=== PATIENT | male | born 1950 | race Caucasian/White ===

== ENCOUNTER 2023-09-04 12:18 | Outpatient (CLI) | payer MEDICARE, SELFPAY ==
--- NOTE | ~2023-09-04 | XR_ITS ---
EXAM: XR finger 3rd LT min 2V DATE: 09/04/2023 12:34 HISTORY: M79.645 - Pain in left finger(s) . COMPARISON: None available. FINDINGS: Normal mineralization. No fracture or dislocation. No lytic or blastic lesion. Mild multif ocal joint space narrowing and osteophytosis. No erosion or periosteal change. Soft tissues within no rmal limits. 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 Reviewed, dictated and finalized at location K.
== END 2023-09-04 12:19 ==
PROVIDERS: Visit Provider Family Medicine
DX: M19.042 Primary osteoarthritis, left hand (principal)
CPT/HCPCS: 73140

== ENCOUNTER 2024-08-14 09:39 | Outpatient (CLI) | payer MEDICARE, SELFPAY ==
--- NOTE | ~2024-08-14 | XR_ITS ---
XR hip RT min 2V 08/14/2024 10:00 Indication: Right hip pain Procedure: 2 views right hip Comparison: No prior studies for comparison. Findings: Moderate osteoarthritis of the right hip. No fracture, subluxation or dislocation. No signi ficant soft tissue abnormality. No foreign bodies. Impression: 1: Moderate osteoarthritis of the right hip. Reviewed, dictated and finalized at location A. Impression: 1: Moderate osteoarthritis of the right hip.
--- NOTE | ~2024-08-14 | XR_ITS ---
XR lumbar spine min 4V 08/14/2024 10:00 Indication: Back pain Procedure: 5 views lumbar spine Comparison: No prior studies for comparison. Findings: There is mild chronic wedge compression deformity of T12. There is disc narrowing at all renetta mbar levels. There is multilevel facet hypertrophy at L3-4 through L5-S1. No evidence for spondylolis thesis. No acute fracture is identified. Sacral foramen are symmetric. There is a sclerotic lesion in the left ilium, most likely benign bone island in the absence of known malignancy. There is bilatera l osteoarthritis of the hips. Impression: 1: Severe lumbar spondylosis. Reviewed, dictated and finalized at location A. Impression: 1: Severe lumbar spondylosis.
== END 2024-08-14 09:40 | disposition home or self-care (01) ==
PROVIDERS: PCP Family Medicine; Visit Provider Family Medicine
DX: M47.896 Other spondylosis, lumbar region (principal); M16.11 Unilateral primary osteoarthritis, right hip
CPT/HCPCS: 72110; 73502

== ENCOUNTER 2024-11-09 13:49 | Outpatient (CLI) | payer MEDICARE, SELFPAY ==
--- NOTE | 2024-11-09 14:47 | ECG_ITS ---
Test Date: 2024-11-09 15:04:58 Measurements Intervals [place] Rate: 52 P: 76 NJ: 85 QRS: 3 QRSD: 102 T: 29 QT: 449 QTc: 420 Interpretive Statements SINUS BRADYCARDIA WITH SHORT [place] INTERVAL BASELINE ARTIFACT- I, II, AVR BORDERLINE ECG No previous ECG available for comparison Electronically Signed On 11-09-2024 15:23:14 CDT by Storm Turner D.O.
[2024-11-09 15:14] LABS: Basophils Percent Auto 0.4 % (0.2-1.2); Eosinophils Absolute Auto 0.1 K/mm3 (0-0.3); Eosinophils Percent Auto 1.5 % (0-4.4); Hemoglobin 15.2 g/dL (14.0-18.0); Immature Granulocyte Absolute 0.01 K/mm3 (0.00-0.031); Immature Granulocyte Percent A 0.2 % (0-0.5); Lymphocytes Absolute Auto 1.26 K/mm3 (0.9-3.2); Mean Corpuscular HGB Conc 35.3 g/dl (32-36); Mean Corpuscular Hemoglobin 32.8 pg (26-34); Mean Corpuscular Volume 92.7 fl (80-100); Mean Platelet Volume 9.4 fl (7.4-10.4); Monocytes Absolute Auto 0.4 K/mm3 (0.1-0.6); Monocytes Percent Auto 7.8 % (2.6-8.5); Neutrophils Absolute Auto 3.7 K/mm3 (1.3-6.7); Neutrophils Percent Auto 67.1 % (45.5-73.1); Platelet Count Result 216 k/mm3 (150-375); Red Blood Count 4.64 M/mm3 (4.6-6.20); Red Cell Distribution Width 12.2 % (11.5-14.5); White Blood Count 5.5 K/mm3 (4.5-10.0)
[2024-11-09 15:24] LABS: Albumin Level 4.4 g/dL (3.5-5.1); Anion Gap 9 mmol/L (4-12); Blood Urea Nitrogen 12 mg/dL (9-20); Calcium 9.2 mg/dL (8.4-10.2); Carbon Dioxide 27 mmol/L (22-30); Chloride 104 mmol/L (98-107); Estimated Glomerular Filt Rate > 60; Glucose 92 mg/dL (65-110); Potassium 3.8 mmol/L (3.4-5.0); Sodium 140 mmol/L (137-145)
[2024-11-09 15:30] LABS: Urine Cotinine NEGATIVE
[2024-11-09 15:55] LABS: Hemoglobin A1C 5.2 % (<5.7)
== END 2024-11-09 13:50 | disposition home or self-care (01) ==
LOC: ANHSURGERY 13:53
PROVIDERS: PCP Family Medicine; Visit Provider Orthopaedic Surgery
DX: Z01.818 Encounter for other preprocedural examination (principal); M16.11 Unilateral primary osteoarthritis, right hip; R94.31 Abnormal electrocardiogram [ECG] [EKG]
CPT/HCPCS: 80048; 80307; 82040; 83036; 85025; 87081; 87181; 93005

== ENCOUNTER 2024-12-01 00:51 | Day surgery (SDC) | payer MEDICARE, SELFPAY ==
[2024-11-09 14:06] VITALS: BP 134/65; PULSE 56; RESP 16; TEMP 36.7; O2SAT 99; BMI 35.8
--- NOTE | 2024-11-09 14:23 | PC.NURSE ---
Report to the Outpatient Waiting Room, entrance under the green pavilion located off [facility], at time ___6:00AM____ on date ___12/01/24____. Planned Procedure Time: ___7:30AM .? Time changes happen often and if your time is changed the preop area will call you the afternoon before. - You and your visitor will be asked to self-screen and do not enter if you have any COVID symptoms. Please call surgeon if you need to reschedule. - A mask is optional within the hospital at this time. Patients may have clear liquids (water, carbonated beverages, clear teas, apple juice) until 3 hours prior to surgery (4:30AM) with a maximum of 20 ounces. - No food from midnight until time of surgery and no smoking, or chewing tobacco (or any form of nicotine). No chewing gum, candy or mints. Take only the following medications with a SIP of water on the morning of surgery: NONE DO NOT STOP ANY OF YOUR OTHER PRESCRIPTION MEDICATIONS PRIOR TO SURGERY EXCEPT THE FOLLOWING Medications to discontinue per physician ____HOLD ANACIN (ALL NSAIDS) AND VITAMINS/SUPPLEMENTS 7 DAYS PRE-OP PER DR MICHAELS. Date to take last dose 11/23/24 Please no make-up, nail portuguese, hairspray, perfume, deodorant, or body powder the day of surgery.? No jewelry (including any body piercings) or valuables the day of surgery, leave them at home.? Please take a shower or bath the night before, or the morning of, surgery with an antibacterial soap.? Wear comfortable, loose fitting clothing.? - Jewelry must be removed prior to entering the operating room.? Rings and piercings that are not removed may be cut off. - The hospital will not accept responsibility for valuables.? - Please leave all valuables, including medications, at home the day of surgery. If you are going home after surgery, a licensed superintendent drivers must drive you home.? - NO public transportation without another adult if you receive anesthesia. - We recommend that an adult stay with you for 24 hours following discharge. - We also recommend that you do not drive, make important decision, drink alcoholic beverages, or take any drugs that were not prescribed by your health care provider for at least 24 hours after your discharge time. Follow any additional instructions given to you from your surgeon. Telephone instructions given to ____PATIENT & WIFE and asked if any additional questions and then verbalized understanding. Patient advised to call surgeon office or pre surgery nurse liaison [phone] if any additional questions.
--- NOTE | 2024-11-30 12:46 | P.HP_ITS ---
H&P: HPI History of Present Illness Date/Time: 11/30/24 12:46 Chief Complaint: Right hip DJD Narrative: 74-year-old male who presents today for a right anterior total hip arthroplasty. Patient has been having progressively worsening symptoms in pain in his right hip over the course of the last 2-3 years. At this point he is getting symptoms on a daily basis. The arthritis in the hip is limiting his activities daily. He is very active individual but the pain he is experiencing from the arthritic hip is starting to limit those activities. Patient has moderately severe type 2 osteoarthritis in the right hip. This point he feels he would rather proceed with total hip arthroplasty rather than continue nonsurgical treatment. Review of Systems Review of Systems: All systems reviewed & are unremarkable except as noted in HPI and below PMFSH Past Medical History Medical History (Updated 09/25/24 @ 07:37 by Yvette Machado CMA) Essential (primary) hypertension Surgical History Surgical History (Updated 09/25/24 @ 07:37 by Yvette Machado CMA) History of trigger finger History of carpal tunnel surgery bilateral Social History Social History Smoking status: Never smoker Alcohol intake: current Drinks per week: 5 Substance use: never Substance use type: does not use Do You Feel Safe in your Home?: Yes Lack of Transportation: No Lack of Food: Never True Current Housing: I Have Housing Concerned About Future Housing: No Difficulty Paying Gas/Electric Bills: No Difficulty Paying for Meds: No Currently Unemployed: No Education: Bachelor's Degree Difficulty w/ Childcare or Family Care: No Living arrangements: with family Additional living arrangements comments: Occupation/Education: retired Gender identity (if verbalized by the patient): Male Sexual Orientation (if Verbalized by the Patient): Straight or Heterosexual Spiritual care concerns: No Meds Home Medications and Allergies Home Medications ?Medication ?Instructions ?Recorded ?Confirmed ?Type losartan 50 mg tablet 50 mg PO DAILY #90 tabs 08/12/24 11/09/24 Rx magnesium 250 mg tablet 250 mg PO DAILY 09/25/24 11/09/24 History aspirin-caffeine 400 mg-32 mg 2 tablet PO Q6H PRN headache 11/09/24 11/09/24 History tablet (Anacin) mupirocin 2 % topical ointment 1 applic topical BID #15 grams 11/12/24 Rx Allergies Allergy/AdvReac Type Severity Reaction Status Date / Time ibuprofen AdvReac HYPERACTIVI Verified 11/09/24 14:01 TY Exam Narrative: 74-year-old male alert. He is 5 ft 7 an d 230 lb BMI is 35.2. Skin around the hip and groin crease are normal. His right hip flexes to 120 causing him lateral hip pain internal rotation 10? causes mild lateral hip pain external rotation 25 which causes moderate lateral hip and anterior thigh pain. Stinchfield maneuver causes lateral hip pain. He has normal abduction strength in the lateral position. No tenderness over the greater trochanter. 2+ tono salis pedis and posterior tibial artery pulse palpable. Normal sensation both lower extremities. No edema in either lower extremity. Resp: Auscultation: clear to auscultation bilaterally Cardio: Rate: regular rate Rhythm: regular rhythm Assessment and Plan Assessment and plan (1) Primary osteoarthritis of right hip: Code(s): M16.11 - Unilateral primary osteoarthritis, right hip Status: Acute Assessment and Plan: 74-year-old male who has moderately severe type 2 osteoarthritis right hip with significant symptoms on a daily basis. Again at this point patient feels he would rather proceed with total hip arthroplasty rather than continue nonsurgical treatment. Surgical procedure as well as the risks and complications were discussed in detail and all questions were answered and we will proceed. Patient will see his primary care doctor for pre-surgical clearance. He will avoid any anti-inflammatories or aspirin products 1 week prior to surgery. Hemoglobin is 15.2 platelets are 216. Chem panel is within normal limits creatinine 0.84. His nasal swab did grow oxacillin sensitive Staph aureus and he has been Decolonizing.
[2024-12-01] VITALS (16 sets, daily range): BP systolic 115–145; BP diastolic 62–88; PULSE 51–70; RESP 10–18; TEMP 35.7–36.8; O2SAT 89–100
--- NOTE | ~2024-12-01 | XR_ITS ---
XR surgery orthopedic Ordering provider: Pelon Castillo MD History: . RIGHT OPAL ANTERIOR APPROACH . Comparison: None. FINDINGS/impression: Fluoroscopy time is 44.3 seconds. Cumulative dose is 19.55,mGy. Right hip arthroplasty intraoperative image. Reviewed, dictated and finalized at location A.
--- NOTE | ~2024-12-01 | XR_ITS ---
XR hip RT 1V w AP pelvis Ordering provider: Pelon Castillo MD History: . RIGHT OPAL ANTERIOR APPROACH, POST-OP . Comparison: September 25, 2024 FINDINGS: BONES: No acute fracture or dislocation. HIP JOINT SPACES: Right hip arthroplasty. Mild to moderate left hip osteoarthritic changes. SACROILIAC JOINT SPACES/LUMBAR SPINE: The sacroiliac joint spaces are normal. Mild degenerative banks es of the visualized lower lumbar spine. PUBIC SYMPHYSIS: Normal. SOFT TISSUES: Postoperative changes in the soft tissues of the right hip. IMPRESSION: No acute osseous abnormality pelvis. The right hip arthroplasty. Reviewed, dictated and finalized at location A.
--- OUTSIDE RECORDS SUMMARY | 2024-12-01 00:54 | XMS_ITS | Clinical Summary ---
Author Organization [facility] Address [address] [place] [address] Care Team Providers Care Card Checker Name Role Phone Unavailable Primary Care Provider Unavailabl e Social History Tobacco Use Types Packs/Day Years Used Date Smoking Tobacco: Never Assessed Sex and Gender Information Value Date Recorded Sex Assigned at Not on file Legal Sex Male 7:26 PM CDT Gender Identity Not on file Sexual Orientation Not on file Plan of Treatment Health Maintenance Due Date Last Done Comments Colorectal Cancer Screening Colonoscopy (10 Years) 1952 Hepatitis C 1970 DTaP, Tdap and Td Vaccines ( 1 - Tdap) 1971 Pneumococcal Vaccine: 50+ Ye ars (1 of 1 - PCV) 2002 Zoster Vaccines (1 of 2) 2002 COVID-19 Vaccine ( - 2023-2 5 season) 2024 RSV Immunization or 60+ Years (1 - 1-dose 75+ series) 2027 Meningococcal B Vaccine Aged Out No l onger eligible based on patient's age to complete this topic Meningococcal Vaccine Aged Out No rishabh sergio eligible based on patient's age to complete this topic RSV Immunizations Under 20 Months Aged Out No longer eligible based on patient's age to complete this topic
--- OUTSIDE RECORDS SUMMARY | 2024-12-01 00:54 | XMS_ITS | Clinical Summary ---
Author Organization [facility] Address [address] [place] [address] Care Team Providers Care Senior Architect Name Role Phone Alexis Pereira MD Primary Care Provider [phone] Allergies No known active allergies Medications losartan (COZAAR) 50 mg tabletIndicatio ns:hypertension Take 1 tablet (50 mg total) by mouth every morning 09/06/2023 Active magnesium gluconate (MAGONATE) 500 mg (27 mg elemental) tabletIndicatio ns:hypomagnesem ia Take 1 tablet (500 mg total) by mouth every morning Active glucosamine-cho nd-msm-vit C-Mn 500-400-166.6 mg tabletIndicatio ns:supplement Take 1 tablet by mouth every morning Active garlic 400 mg tablet Take 400 mg by mouth daily Active Active Problems Problem Noted Date Diagnosed Date Trigger middle finger of left hand 10/03/2023 Surgical History Surgery Date Site/Laterality Comments CARPAL TUNNEL RELEASE 05/20/2015 - 05/19/2016 Bilateral TRIGGER FINGER RELEASE 05/20/2015 - 05/19/2016 Right TONSILLECTOMY 05/20/1956 - 05/19/1957 Medical History Medical History Date Comments GERD (gastroesophageal reflux disease) Social History Tobacco Use Types Packs/Day Years Used Date Smoking Tobacco: Never Smokeless Tobacco: Never Tobacco Cessation:Counseling Given: Not Answered AUDIT-C Answer Date Recorded Q1: How often do you have a drink containing alc ohol? 2-4 times a month 11/12/2023 Q2: How many drinks containi ng alcohol do you have on a typical day when you are drinking? 1 or 2 11/12/2023 Q3: How often do you have si x or more drinks on one occasion? Less than monthly 11/12/2023 Personal Safety Answer Date Recorded Have you ever been in or are you currently in a harmful physical or emotional relationship or is someone making you feel afraid or unsafe? Denies 11/12/2023 Sex and Gender Information Value Date Recorded Sex Assigned at Not on file Legal Sex Male 2:23 PM CDT Gender Identity Not on file Sexual Orientation Not on file Obstetrics History Last Filed Vital Signs Vital Sign Reading Time Taken Comments Blood Pressure 135/78 11/12/2023 8:50 AM CDT Pulse 45 11/12/2023 8:50 AM CDT Temperature 36.2 C (97.2 F) 11/12/2023 5:47 AM CDT Respiratory Rate 12 11/12/2023 8:50 AM CDT Oxygen Saturation 99% 11/12/2023 8:50 AM CDT Inhaled Oxygen Concentration - - Weight 104.3 kg (230 lb) 11/12/2023 5:47 AM CDT Height 175.3 cm (5' 9) 11/12/2023 5:47 AM CDT Body Mass Index 33.97 11/12/2023 5:47 AM CDT Plan of Treatment Health Maintenance Due Date Last Done Comments Colon Cancer Screening-Colonoscopy 1950 Depression Screening 1950 Hepatitis C Screening 1950 Hepatitis B Screening 1970 Pneumococcal vaccine 65+ (1 of 1 - PCV) 2002 Zoster Vaccine (1 of 2) 2002 Well Visit 65+ 2017 DTaP/Tdap/Td Vaccine (2 - Td or Tdap) 12/03/2023 12/02/2013 Covid-19 Vaccine (5 - 2023-2 5 season) 2024 05/31/2022, 06/17/2021, 08/07/2020, Additional history exists Fall Risk Assessment 11/11/2024 11/12/2023 Influenza Vaccine (Season Ended) 2025 03/26/2023, 04/27/2022, 02/24/2016, Additional history exists Insurance [facility] MEDICARE [facility] AET[employer] MEDICARE GOLD Care Teams Senior Architect Relationship Specialty Start Date End Date Alexis Pereira MD [address] [place] [id number] PCP - General Family Medicine 09/16/23
--- OUTSIDE RECORDS SUMMARY | 2024-12-01 00:54 | XMS_ITS | Referral Summary ---
Author Organization [facility] Address [address] [place] [address] Care Team Providers Care Certified Coder Name Role Phone Alexis Pereira MD Primary Care Provider [phone] Allergies No known active allergies Medications losartan [...] Trigger middle finger of left hand 10/03/2023 Social History Tobacco Use Types Packs/Day Years [...] on file Sexual Orientation Not on file Last Filed Vital Signs Vital Sign Reading [...] 11/12/2023 5:47 AM CDT Plan of Treatment Not on file Insurance [facility] MEDICARE GOLD [facility] MEDICARE [facility] Care Teams Certified Coder Relationship Specialty Start Date End Date Alexis Pereira MD [address] [place] [id number] PCP - General Family Medicine 09/16/23
[2024-12-01] MEDS: LACTATED RINGERS 1,000 ML 30 ML IV CONT ×2 (06:30→12:06)
[2024-12-01] MEDS: VANCOMYCIN 1,500 MG/NS 500 ML 1,500 MG/500 ML BAG 250 MG IVPB (06:30)
[2024-12-01] MEDS: TRANEXAMIC ACID 1,000MG/ISO100 1,000 MG/100 ML BAG 200 MG IVPB (06:55)
[2024-12-01] MEDS: ACETAMINOPHEN 500 MG TABLET 1000 MG PO (06:55)
--- NOTE | 2024-12-01 07:09 | WPDHPUPDATE1 ---
History and Physical Update Update Date/Time: 12/01/24 07:09 History and Physical has been reviewed, including an updated exam of the patient. There are NO changes in the patient's condition. Risks, benefits, and alternatives have been discussed and questions answered. Patient agrees to proceed with procedure.
--- NOTE | 2024-12-01 07:29 | P.PNAN_ITS ---
Anes - Initial Pre Proc Eval Procedure: Operation Date: 12/01/24 07:30 Proposed Procedures p Right Total Hip Arthroplasty Anterior Approach - Pelon Castillo MD Date/Time: 12/01/24 07:29 Surgeon: Pelon Castillo MD Pre Op Diagnosis: oa right hip Patient Data Age: 74 Gender: M Height: 1.72 m Weight: 102.8 kg Last Vital Signs Temp 97.6 F 12/01/24 07:20 Pulse 51 L 12/01/24 07:20 Resp 16 12/01/24 07:20 BP 142/76 H 12/01/24 07:20 Pulse Ox 97 12/01/24 07:20 O2 Del Method Room Air 12/01/24 07:20 Allergies Allergy/AdvReac Type Severity Reaction Status Date / Time ibuprofen AdvReac HYPERACTIVI Verified 11/09/24 14:01 TY Home Medications ?Medication ?Instructions ?Recorded ?Confirmed ?Type losartan 50 mg tablet 50 mg PO DAILY #90 tabs 08/12/24 11/09/24 Rx magnesium 250 mg tablet 250 mg PO DAILY 09/25/24 11/09/24 History aspirin-caffeine 400 mg-32 mg 2 tablet PO Q6H PRN headache 11/09/24 11/09/24 History tablet (Anacin) mupirocin 2 % topical ointment 1 applic topical BID #15 grams 11/12/24 Rx Laboratory Tests 12/01/24 06:49 Blood Type Pending Antibody Screen Pending Patient hx anesthesia problems: none Family hx anesthesia problems: none Results Review: All pre-operative results and documents have been reviewed as part of the pre- operative evaluation. [facility] Past Medical History Medical History (Updated 09/25/24 @ 07:37 by Yvette Machado CMA) Essential (primary) hypertension Surgical History Surgical History (Updated 09/25/24 @ 07:37 by Yvette Machado CMA) History of trigger finger History of carpal tunnel surgery bilateral Social History Social History Smoking status: Never smoker Alcohol intake: current Drinks per week: 5 Substance use: never Substance use type: does not use Do You Feel Safe in your Home?: Yes Lack of Transportation: No Lack of Food: Never True Current Housing: I Have Housing Concerned About Future Housing: No Difficulty Paying Gas/Electric Bills: No Difficulty Paying for Meds: No Currently Unemployed: No Education: Bachelor's Degree Difficulty w/ Childcare or Family Care: No Living arrangements: with family Additional living arrangements comments: Occupation/Education: retired Gender identity (if verbalized by the patient): Male Sexual Orientation (if Verbalized by the Patient): Straight or Heterosexual Spiritual care concerns: No Anes - Eval Final PreProcedure Day of Procedure 12/01/24 07:29 Patient weight: obese Heart: regular rate and rhythm Lungs: clear to auscultation Airway: Mallampati scale class II Neurological: alert and oriented Last oral intake: >/= 8 hours ASA classification: III Emergent: no Anesthetic plan: proceed Anesthesia type and monitoring: general ETT and standard monitoring Results Review: All pre-operative results and documents have been reviewed as part of the pre- operative evaluation. Informed Consent: The patient's anesthetic plan and its attendant risks and benefits were discussed with the patient/family/POA. Questions were solicited and answers provided to the satisfaction of the patient/family/POA.
[2024-12-01] MEDS: ceFAZolin 2 GM in SODIUM CHLORIDE 0.9% IV 50 ML 100 ML IVPB (07:39)
[2024-12-01] MEDS: TRANEXAMIC ACID 1,000 MG/10 ML AMPUL 1000 MG IV PUSH (11:30)
[2024-12-01] MEDS: KETOROLAC 30 MG/ML VIAL (*BKC) IV PUSH (11:33)
[2024-12-01] MEDS: SODIUM CHLORIDE 0.9% IV 37.7 ML, MORPHINE SULFATE INJ (*CRX) 2 MG, ROPivacaine HCL 1% 2... INFILTRATE (11:48)
--- NOTE | 2024-12-01 11:55 | W.PM.PROC2 ---
Procedure Note - Detailed Date of Procedure 12/01/24 Pre-op Diagnosis oa right hip Post-op Diagnosis Same Procedure Performed Right total hip arthroplasty, direct anterior approach Surgeon Pelon Castillo MD Scrubber System Attendant Shukri Anesthesia General Description of Procedure Patient was brought to the operating room and general anesthesia was administered. He received 2 g of Ancef weight based vancomycin 1 g of TXA preoperatively. Boots were applied the feet after application of padding SCDs were applied to the legs and running during the procedure. The patient was transferred to the [facility] table and the right hip prepped draped usual fashion. A 10 cm longitudinal incision was made starting 3 cm lateral to the ASIS. Dissection was carried down to the fascia over the tensor fascia doris which was longitudinally incised over its midportion elevated off the anterior 50% of the TFL muscle. Interval between TFL and rectus femoris developed. Crossing branches of ascending lateral femoral circumflex vessels were ligated with suture divided. Retractor was placed anteromedial to the hip capsule the hip abducted internally rotated and the gluteus minimus elevated off the lateral capsule. Inverted T capsulotomy was performed and a femoral neck osteotomy made according to preoperative templating. Femoral head measured 53 mm in diameter due to peripheral osteophytes. Acetabulum was exposed labrum excised. Small fractured fragments of posterolateral osteophyte were noted and removed. The femur was externally rotated and extended and the interval between conjoined tendon and piriformis incised allowing the conjoined tendon to recess and the piriformis to flip posteriorly. With the leg back in the horizontal position acetabulum was exposed and prepared medialized with the 46 Reamer and reaming up to a 50 3 which reached the periphery. A light reaming with the 54 Reamer was performed. We could not seat the 54 trial. A precise reaming with the 54 to the floor the acetabulum was performed. And the 54 trial fit very snugly. The 54 shell was impacted and seated fully at 40? of abduction and appropriate anteversion matching his anatomy the anterior rim of the shell 2 mm on the anterior acetabular rim. Excellent Press-Fit was achieved. Single screw was placed in the ilium and the 36 inner diameter polyethylene liner fully seated without difficulty. The hip was externally rotated and extended with the table hook in place exposing the proximal femur. Exposure was a little bit more difficult because of his muscular stocky build and obesity. Once appropriate access the proximal femur was achieved through positioning, the femur was broached up to a size 9 Actis broach which had complete torsional stability. We trialed and with a 1.5 was too tight. The -2 could be reduced. Fluoroscopic x-rays showed that we had restored the preop leg length with the standard neck and -2 head. Offset seemed a little bit diminished and our neck cut was 2.5 mm higher than our preoperative templating. Therefore the 9 was countersunk 2.5 mm and trialing with the 1.5 gave appropriate soft tissue tension and excellent stability. The +5 could not be reduced. Calcar planing was completed and the size 9 standard offset Actis stem fully seated with the collar resting on the calcar no cracks. Trialing with the 1.5 proved that was the best size head and the ceramic 1.5 head was impacted on the clean and dried trunnion. Wound was again irrigated with Ancef solution and hip reduced stability and soft tissue tension reconfirmed. Superior limb the capsulotomy was closed with 2. Vicryl was. Local anesthetic cocktail was injected into the periarticular soft tissues. Fascia was closed with running 1. Vicryl drain deep in the subcu and the skin closed with 2-0 subcutaneous Vicryl and glue. Two additional g of Ancef own 1 g of TXA was given at time of wound closure. Estimated blood loss was 750 cc by Cell Saver and 250 cc returned as Cell Saver blood. Patient tolerated the procedure well was transferred to postop recovery room stable condition. Bone quality seemed excellent we will allow to be weight-bearing as tolerated postoperatively. [facility] Billing Surgery - Charge Forward: Surgery Billing (Right total hip replacement)
--- NOTE | 2024-12-01 12:14 | PM.OP ---
Procedure Note - Brief Procedure Note - Brief Date of procedure: 12/01/24 oa right hip Procedure performed: Right anterior total hip arthroplasty Surgeon: MARIELOS Moore Findings: 74-year-old male underwent right anterior total hip arthroplasty on 12/01. I was involved in the procedure including positioning patient on the OR table in 1st assisting through the time surgery. Total time spent was 4 hours
[2024-12-01] MEDS: ACETAMINOPHEN 325 MG TABLET 650 MG PO ×3 (14:28→21:46)
[2024-12-01] MEDS: oxyCODONE HCL (*CRX) 5 MG TAB IR PO (14:28)
--- NOTE | 2024-12-01 15:12 | PM.IMCN ---
Assessment and Plan Assessment and plan (1) Primary osteoarthritis of right hip: Code(s): M16.11 - Unilateral primary osteoarthritis, right hip Status: Acute Assessment and Plan: - ambulate with assistance and up to chair - use IS - neurovasc checks - see order for intervals - SCDs and Eliquis - pain management and antiemetics p.r.n. - monitor labs in AM - CBC and BMP - bowel regimen: docusate/senna, polyethylene glycol - PT/OT evaluation/treatment (2) Essential (primary) hypertension: Code(s): I10 - Essential (primary) hypertension Status: Acute Assessment and Plan: - chronic, currently 130/69 - continue home medications: Losartan - monitor Plan Diet: Regular GI Prophylaxis: Famotidine p.o. DVT Prophylaxis: SCDs, Eliquis IV fluids: NS 125 mL/hour Lines/Tubes: Peripheral IV Code Status: Full code HPI Date of Consult Consult date: 12/01/24 Requesting Physician: Pelon Castillo MD Primary Care Provider: Alexis Pereira MD Consult Narrative Reason for consult: Medical Management Narrative: 74 y/o M with PMH of HTN presents here for a right total hip arthroplasty. The patient presents here on 12/01 for a right total hip arthroplasty. The patient reports he has had ongoing pain to his right hip for some years with progression in severity over the last 2-3 years. Significantly worse since May. Pain is now affecting him on a daily basis and limiting his daily activities. He has a history of moderately severe type to osteoarthritis of the right hip. He has been managing his pain via conservative measures, however due to the severity of the pain and progression of the pain he elected to move forward with surgical management. Postoperatively he is reporting no significant nausea, vomiting or pain. Preop VS: 98.1? F, HR 56, RR 16, 134/65, and 99% on RA. Preop workup: No leukocytosis, no anemia, no significant electrolyte derangements, renal function within normal limits, and A1c 5.2% Review of Systems Review of Systems: All systems reviewed & are unremarkable except as noted in HPI and below PMFSH Past Medical History Medical History (Updated 12/01/24 @ 15:15 by Raissa Qiu APRN) GERD (gastroesophageal reflux disease) Essential (primary) hypertension Surgical History Surgical History (Updated 12/01/24 @ 15:15 by Raissa Qiu APRN) History of tonsillectomy History of trigger finger History of carpal tunnel surgery bilateral Social History Social History Smoking status: Never smoker Alcohol intake: never Drinks per week: 5 Substance use: never Substance use type: does not use Do You Feel Safe in your Home?: Yes Lack of Transportation: No Lack of Food: Never True Current Housing: I Have Housing Concerned About Future Housing: No Difficulty Paying Gas/Electric Bills: No Difficulty Paying for Meds: No Currently Unemployed: No Education: Decline to Answer Difficulty w/ Childcare or Family Care: No Living arrangements: with family Additional living arrangements comments: Occupation/Education: retired Gender identity (if verbalized by the patient): Male Sexual Orientation (if Verbalized by the Patient): Straight or Heterosexual Spiritual care concerns: No Meds Home Medications and Allergies Home Medications ?Medication ?Instructions ?Recorded ?Confirmed ?Type losartan 50 mg tablet 50 mg PO DAILY #90 tabs 08/12/24 11/09/24 Rx magnesium 250 mg tablet 250 mg PO DAILY 09/25/24 11/09/24 History aspirin-caffeine 400 mg-32 mg 2 tablet PO Q6H PRN headache 11/09/24 11/09/24 History tablet (Anacin) Allergies Allergy/AdvReac Type Severity Reaction Status Date / Time ibuprofen AdvReac HYPERACTIVI Verified 11/09/24 14:01 TY Vital Signs Vital Signs - 24 hr 12/01/24 07:20 12/01/24 12:06 12/01/24 12:15 Temperature 97.6 F 98.2 F Pulse Rate 51 L 54 L 60 Respiratory Rate 16 12 10 L Blood Pressure 142/76 H 122/69 132/82 Pulse Oximetry 97 98 100 Oxygen Delivery Room Air Simple Face Mask Simple Face Mask Oxygen Flow Rate 8 8 12/01/24 12:30 12/01/24 12:35 12/01/24 12:45 Temperature Pulse Rate 63 64 Respiratory Rate 15 14 Blood Pressure 145/82 H 142/82 H Pulse Oximetry 100 100 Oxygen Delivery Simple Face Mask Simple Face Mask Room Air Oxygen Flow Rate 8 8 12/01/24 12:50 12/01/24 13:05 12/01/24 13:09 Temperature 97.1 F L Pulse Rate 61 65 62 Respiratory Rate 12 12 17 Blood Pressure 142/81 H 142/84 H 138/88 Pulse Oximetry 99 100 99 Oxygen Delivery Room Air Room Air Room Air Oxygen Flow Rate 12/01/24 13:11 12/01/24 13:26 12/01/24 14:11 Temperature 96.6 F L 96.3 F L Pulse Rate 60 64 Respiratory Rate 18 18 Blood Pressure 135/64 130/69 Pulse Oximetry 99 97 Oxygen Delivery Room Air Oxygen Flow Rate Exam Const: General: comfortable and no acute distress Other: , male, nontoxic appearance HENMT: Face/Nose/Sinus: Normal nares present Mouth: Yes moist mucous membranes Eyes: General: appearance normal, both eyes and all related structures Sclera: sclerae normal Pupils: Equal, round and reactive pupils present EOM: EOMs intact bilaterally Resp: Effort & Inspection: normal respiratory effort Auscultation: clear to auscultation bilaterally Cardio: Rate: regular rate Rhythm: regular rhythm Other: S1-S2 present without murmur, rub, ectopy GI: Other: Abdomen soft, nondistended, nontender. Normoactive bowel sounds in all quadrants. Skin: General skin exam: normal color and no rashes or lesions noted Other: Postoperative incision to right hip, drain in place with serosanguineous output. Neuro: Speech: normal speech Motor exam (neuro): 5/5 motor strength present throughout Sensory Exam: normal sensation Other: A&O x4 Extrem: General: normal to inspection Psych: Mental Status: mental status grossly normal Affect: normal affect Other: Good insight and judgment, pleasant Quality VTE Prophylaxis VTE prophylaxis: mechanical ordered and pharmacologic ordered Hospitalist [facility] Advance Care Plan I have confirmed that the patient's Advanced Care Plan is present, code status is documented, or surrogate decision maker is listed in patient medical record.: Yes Medication Reconciliation I have utilized all available resources to obtain, update and review the patients current medications (includes all prescriptions, OTC, herbals, cannabis, and nutritional supplements).: Yes
--- NOTE | 2024-12-01 15:20 | PC.NURSE ---
This patient, Tong Reynaga, was received from PACU on 12/01/24 at . Patient/family oriented to unit policies and routines Admission Note: The patient,Tong Reynaga,74 y/o, was given written information regarding hospital policies, unit procedures and contact persons. Patient's smoking status: Never smoker. Al questions answered.
[2024-12-01] MEDS: KETOROLAC 15 MG/ML VIAL (*BKC) IV PUSH (17:31)
[2024-12-01] MEDS: SENNA/DOCUSATE SODIUM TABLET 2 TAB PO (17:33)
[2024-12-01] MEDS: ceFAZolin 2 GM/D5W 50 ML 2 GM/50 ML BAG IVPB (17:35)
[2024-12-01] MEDS: VANCOMYCIN HCL 1,000 MG in SODIUM CHLORIDE 0.9% IV 250 ML 250 MG IVPB (17:35)
[2024-12-01] MEDS: FAMOTIDINE 20 MG TABLET PO (21:45)
[2024-12-02] MEDS: ceFAZolin 2 GM/D5W 50 ML 2 GM/50 ML BAG IVPB ×2 (00:38→08:59)
[2024-12-02] MEDS: KETOROLAC 15 MG/ML VIAL (*BKC) IV PUSH (00:39)
[2024-12-02 02:56] VITALS: BP 102/52; PULSE 60; RESP 18; TEMP 36.3; O2SAT 97
[2024-12-02 06:02] LABS: Hematocrit 38.4 % (42.0-52.0); Hemoglobin 13.2 g/dL (14.0-18.0); Immature Granulocyte Percent A 0.4 % (0-0.5); Lymphocytes Absolute Auto 1.13 K/mm3 (0.9-3.2); Mean Corpuscular HGB Conc 34.4 g/dl (32-36); Mean Corpuscular Hemoglobin 32.8 pg (26-34); Mean Corpuscular Volume 95.3 fl (80-100); Nucleated Red Blood Cells Absolute Auto 0.000 K/mm3 (0.0-0.012); Nucleated Red Blood Cells Perc 0.0 % (0.0-0.2); Platelet Count Result 162 k/mm3 (150-375); Red Blood Count 4.03 M/mm3 (4.6-6.20); White Blood Count 10.5 K/mm3 (4.5-10.0)
[2024-12-02 06:16] LABS: Anion Gap 7 mmol/L (4-12); Blood Urea Nitrogen 15 mg/dL (9-20); Calcium 8.4 mg/dL (8.4-10.2); Carbon Dioxide 26 mmol/L (22-30); Chloride 103 mmol/L (98-107); Estimated CRCL calculation 68 ml/min; Estimated Glomerular Filt Rate > 60; Glucose 116 mg/dL (65-110); Potassium 3.9 mmol/L (3.4-5.0); Sodium 136 mmol/L (137-145)
[2024-12-02] MEDS: ACETAMINOPHEN 325 MG TABLET 650 MG PO ×2 (06:47→09:00)
[2024-12-02] MEDS: VANCOMYCIN HCL 1,000 MG in SODIUM CHLORIDE 0.9% IV 250 ML 250 MG IVPB (06:47)
[2024-12-02 07:31] VITALS: O2SAT 92
--- NOTE | 2024-12-02 08:29 | P.PNOP_ITS ---
Subjective Subjective Date/Time Seen: 12/02/24 08:29 Interval history: Postop day 1 patient is alert. He is afebrile vital signs are stable. Blood pressure is slightly low patient is asymptomatic. Morning labs are noted. Patient's dressing has been changed and his drain is out. He was up walking yesterday with therapy. He has been urinating well since surgery. Overall pain is well controlled. Patient is neurovascularly intact. His incision is dry and intact. Overall patient feels well. He has the typical soreness proximal thigh due to surgery but overall his symptoms are relatively mild. Patient will work with therapy this morning and if he continues to do well he be discharged home later this morning. Objective Data Vital Signs Vital Signs: Vital Signs - 24 hr 12/01/24 12:06 12/01/24 12:15 12/01/24 12:30 Temperature 98.2 F Pulse Rate 54 L 60 63 Respiratory Rate 12 10 L 15 Blood Pressure 122/69 132/82 145/82 H Pulse Oximetry 98 100 100 Oxygen Delivery Simple Face Mask Simple Face Mask Simple Face Mask Oxygen Flow Rate 8 8 8 12/01/24 12:35 12/01/24 12:45 12/01/24 12:50 Temperature Pulse Rate 64 61 Respiratory Rate 14 12 Blood Pressure 142/82 H 142/81 H Pulse Oximetry 100 99 Oxygen Delivery Simple Face Mask Room Air Room Air Oxygen Flow Rate 8 12/01/24 13:05 12/01/24 13:09 12/01/24 13:11 Temperature 97.1 F L 96.6 F L Pulse Rate 65 62 60 Respiratory Rate 12 17 18 Blood Pressure 142/84 H 138/88 135/64 Pulse Oximetry 100 99 99 Oxygen Delivery Room Air Room Air Oxygen Flow Rate 12/01/24 13:26 12/01/24 13:56 12/01/24 14:11 Temperature 96.3 F L 96.3 F L Pulse Rate 64 64 Respiratory Rate 18 18 Blood Pressure 130/69 130/69 Pulse Oximetry 97 97 Oxygen Delivery Room Air Oxygen Flow Rate 12/01/24 14:56 12/01/24 18:56 12/01/24 22:32 Temperature 96.3 F L 97.3 F L Pulse Rate 64 69 Respiratory Rate 18 18 Blood Pressure 130/69 115/64 Pulse Oximetry 97 97 89 L Oxygen Delivery Nasal Cannula Oxygen Flow Rate 1 12/01/24 22:56 12/01/24 22:59 12/02/24 02:56 Temperature 97.7 F 97.4 F L Pulse Rate 70 60 Respiratory Rate 18 16 18 Blood Pressure 117/62 102/52 L Pulse Oximetry 98 94 97 Oxygen Delivery Nasal Cannula Oxygen Flow Rate 1 12/02/24 07:31 Temperature Pulse Rate Respiratory Rate Blood Pressure Pulse Oximetry 92 Oxygen Delivery Room Air Oxygen Flow Rate Intake/Output Intake/Output: Intake & Output 11/29/24 11/30/24 12/01/24 12/02/24 23:59 23:59 23:59 23:59 Intake Total 700 Output Total 140 400 Balance 560 -400 Meds/Results Medications: Active Medications Generic Name Dose Route Start Last Admin Trade Name Freq PRN Reason Stop Dose Admin Acetaminophen 650 mg 12/01/24 14:00 12/02/24 06:47 Acetaminophen 325 Mg Tablet PO 650 mg Q4H MAVIS Administration Apixaban 2.5 mg 12/02/24 09:00 Apixaban 2.5 Mg Tablet PO Q12HR MAVIS Celecoxib 200 mg 12/02/24 09:00 Celecoxib 200 Mg Capsule PO DAILY MAVIS Cephalexin HCl 500 mg 12/02/24 14:00 Cephalexin 500 Mg Capsule PO Q6H MAVIS Famotidine 20 mg 12/01/24 21:00 12/01/24 21:45 Famotidine 20 Mg Tablet PO 20 mg Q12HR MAVIS Administration Sodium Chloride 1,000 mls @ 125 mls/hr 12/01/24 13:11 12/02/24 06:40 Normal Saline Iv IV CONT Not Given .Q8H MAVIS Losartan Potassium 50 mg 12/02/24 09:00 Losartan Potassium 50 Mg Tablet PO DAILY MAVIS Morphine Sulfate 2 mg 12/01/24 13:11 Morphine Sulfate (*Crx) 2 Mg/Ml Inj IV PUSH Q2H PRN Breakthrough Pain Rated 4-6 or NPO Naloxone HCl 0.1 mg 12/01/24 13:11 Naloxone Hcl 0.4 Mg/Ml Vial IV PUSH Q2M PRN Opiate Reversal Ondansetron HCl 4 mg 12/01/24 13:11 Ondansetron Inj 4 Mg/2 Ml Vial IV PUSH Q4H PRN Nausea And Vomiting Oxycodone HCl 5 mg 12/01/24 13:11 12/02/24 06:40 Oxycodone Hcl (*Crx) 5 Mg Tab Ir PO Not Given Q4H AMVIS Oxycodone HCl 5 mg 12/01/24 13:11 Oxycodone Hcl (*Crx) 5 Mg Tab Ir PO Q4H PRN Pain Rated 7-10 Polyethylene Glycol 17 gm 12/02/24 09:00 Polyethylene Glycol 3350 17 Gm Powd.Pack PO QAM MAVIS Senna/Docusate Sodium 2 tab 12/01/24 17:00 12/01/24 17:33 Senna/Docusate Sodium Tablet PO 2 tab BID MAVIS Administration Radiology Results: ITS Impressions Hip/Pelvis X-Ray 12/01/24 14:11 IMPRESSION: No acute osseous abnormality pelvis. The right hip arthroplasty. Labs Labs: Laboratory Results - last 24 hr 12/02/24 05:29 WBC 10.5 H RBC 4.03 L Hgb 13.2 L Hct 38.4 L MCV 95.3 MCH 32.8 MCHC 34.4 RDW 12.1 Plt Count 162 MPV 9.8 Immature Gran % (Auto) 0.4 Neut % (Auto) 79.3 H Lymph % (Auto) 10.8 L [place] % (Auto) 9.2 H Eos % (Auto) 0.2 Baso % (Auto) 0.1 L Lymph # (Auto) 1.13 [place] # (Auto) 1.0 H Eos # (Auto) 0.0 Baso # (Auto) 0.0 Abs Immat Gran (auto) 0.04 H Absolute Neuts (auto) 8.3 H Absolute Nucleated RBC 0.000 Nucleated RBC % 0.0 Sodium 136 L Potassium 3.9 Chloride 103 Carbon Dioxide 26 Anion Gap 7 BUN 15 Creatinine 1.01 Estim Creat Clear Calc 68 Estimated GFR > 60 Glucose 116 H Calcium 8.4
[2024-12-02 08:30] VITALS: BP 127/61; PULSE 57; RESP 16; TEMP 36.4; O2SAT 99
--- NOTE | 2024-12-02 08:33 | P.CONIM_ITS ---
Assessment and Plan Assessment and plan (1) Primary osteoarthritis of right hip: Code(s): M16.11 - Unilateral primary osteoarthritis, right hip Status: Acute Assessment and Plan: - ambulate with assistance and up to chair - use IS - neurovasc checks - see order for intervals - SCDs and Eliquis - pain management and antiemetics p.r.n. - monitor labs in AM - CBC and BMP - bowel regimen: docusate/senna, polyethylene glycol - PT/OT evaluation/treatment (2) Essential (primary) hypertension: Code(s): I10 - Essential (primary) hypertension Status: Acute Assessment and Plan: - chronic, currently 130/69 - continue home medications: Losartan - monitor Plan Diet: Regular GI Prophylaxis: Famotidine p.o. DVT Prophylaxis: SCDs, Eliquis IV fluids: NS 125 mL/hour Lines/Tubes: Peripheral IV Code Status: Full code HPI Date of Consult Consult date: 12/02/24 Requesting Physician: Pelon Castillo MD Primary Care Provider: Alexis Pereira MD Consult Narrative Narrative: Tong Reynaga is a 74 year old male with PMH of HTN presents here for a right total hip arthroplasty. The patient presents here on 12/01 for a right total hip arthroplasty. The patient reports he has had ongoing pain to his right hip for some years with progression in severity over the last 2-3 years. Significantly worse since May. Pain is now affecting him on a daily basis and limiting his daily activities. He has a history of moderately severe type to osteoarthritis of the right hip. He has been managing his pain via conservative measures, however due to the severity of the pain and progression of the pain he elected to move forward with surgical management. 12/02/2024 Continues to report no significant nausea, vomiting or pain. Cleared by Ortho for discharge today once pt has worked with PT/OT. Pt has no other complaints or concerns. Review of Systems 2 Review of Systems: All systems reviewed & are unremarkable except as noted in HPI and below PMFSH Past Medical History Medical History (Updated 12/01/24 @ 15:15 by Raissa Qiu APRN) GERD (gastroesophageal reflux disease) Essential (primary) hypertension Surgical History Surgical History (Updated 12/02/24 @ 08:32 by MARIELOS Moore) History of tonsillectomy History of trigger finger History of carpal tunnel surgery bilateral Social History Social History Smoking status: Never smoker Alcohol intake: never Drinks per week: 5 Substance use: never Substance use type: does not use Do You Feel Safe in your Home?: Yes Lack of Transportation: No Lack of Food: Never True Current Housing: I Have Housing Concerned About Future Housing: No Difficulty Paying Gas/Electric Bills: No Difficulty Paying for Meds: No Currently Unemployed: No Education: Decline to Answer Difficulty w/ Childcare or Family Care: No Living arrangements: with family Additional living arrangements comments: Occupation/Education: retired Gender identity (if verbalized by the patient): Male Sexual Orientation (if Verbalized by the Patient): Straight or Heterosexual Spiritual care concerns: No Meds Home Medications and Allergies Home Medications ?Medication ?Instructions ?Recorded ?Confirmed ?Type losartan 50 mg tablet 50 mg PO DAILY #90 tabs 08/12/24 11/09/24 Rx magnesium 250 mg tablet 250 mg PO DAILY 09/25/24 11/09/24 History acetaminophen 325 mg tablet 650 mg (2 x 325 mg) PO Q4H #90 tabs 12/02/24 Rx apixaban 2.5 mg tablet (Eliquis) 2.5 mg PO Q12HR #70 tabs 12/02/24 Rx celecoxib 200 mg capsule (Celebrex) 200 mg PO DAILY #10 caps 12/02/24 Rx cephalexin 500 mg capsule 500 mg PO Q6H #56 caps 12/02/24 Rx oxycodone 5 mg tablet 5 mg PO Q4H PRN Pain #30 tabs 12/02/24 Rx polyethylene glycol 3350 17 gram 17 g PO QAM #30 ea 12/02/24 Rx oral powder packet (Miralax) sennosides 8.6 mg-docusate sodium 2 tab PO BID #60 tabs 12/02/24 Rx 50 mg tablet (Senokot-S) Allergies Allergy/AdvReac Type Severity Reaction Status Date / Time ibuprofen AdvReac HYPERACTIVI Verified 11/09/24 14:01 TY Vital Signs Vital Signs - 24 hr 12/01/24 12:06 12/01/24 12:15 12/01/24 12:30 Temperature 98.2 F Pulse Rate 54 L 60 63 Respiratory Rate 12 10 L 15 Blood Pressure 122/69 132/82 145/82 H Pulse Oximetry 98 100 100 Oxygen Delivery Simple Face Mask Simple Face Mask Simple Face Mask Oxygen Flow Rate 8 8 8 12/01/24 12:35 12/01/24 12:45 12/01/24 12:50 Temperature Pulse Rate 64 61 Respiratory Rate 14 12 Blood Pressure 142/82 H 142/81 H Pulse Oximetry 100 99 Oxygen Delivery Simple Face Mask Room Air Room Air Oxygen Flow Rate 8 12/01/24 13:05 12/01/24 13:09 12/01/24 13:11 Temperature 97.1 F L 96.6 F L Pulse Rate 65 62 60 Respiratory Rate 12 17 18 Blood Pressure 142/84 H 138/88 135/64 Pulse Oximetry 100 99 99 Oxygen Delivery Room Air Room Air Oxygen Flow Rate 12/01/24 13:26 12/01/24 13:56 12/01/24 14:11 Temperature 96.3 F L 96.3 F L Pulse Rate 64 64 Respiratory Rate 18 18 Blood Pressure 130/69 130/69 Pulse Oximetry 97 97 Oxygen Delivery Room Air Oxygen Flow Rate 12/01/24 14:56 12/01/24 18:56 12/01/24 22:32 Temperature 96.3 F L 97.3 F L Pulse Rate 64 69 Respiratory Rate 18 18 Blood Pressure 130/69 115/64 Pulse Oximetry 97 97 89 L Oxygen Delivery Nasal Cannula Oxygen Flow Rate 1 12/01/24 22:56 12/01/24 22:59 12/02/24 02:56 Temperature 97.7 F 97.4 F L Pulse Rate 70 60 Respiratory Rate 18 16 18 Blood Pressure 117/62 102/52 L Pulse Oximetry 98 94 97 Oxygen Delivery Nasal Cannula Oxygen Flow Rate 1 12/02/24 07:31 Temperature Pulse Rate Respiratory Rate Blood Pressure Pulse Oximetry 92 Oxygen Delivery Room Air Oxygen Flow Rate Exam 2 Const: General: comfortable and no acute distress Other: , male, nontoxic appearance HENMT: Face/Nose/Sinus: Normal nares present Mouth: Yes moist mucous membranes Eyes: General: appearance normal, both eyes and all related structures S clera: sclerae normal Pupils: Equal, round and reactive pupils present E OM: EOMs intact bilaterally Resp: Effort & Inspection: normal respiratory effort Auscultation: clear to auscultation bilaterally Cardio: Rate: regular rate Rhythm: regular rhythm Other: S1-S2 present without murmur, rub, ectopy GI: Other: Abdomen soft, nondistended, nontender. Normoactive bowel sounds in all quadrants. Skin: General skin exam: normal color and no rashes or lesions noted Other: Postoperative incision to right hip, drain removed Neuro: Cranial nerves: Yes Equal, round and reactive pupils present Speech: normal speech Motor exam (neuro): 5/5 motor strength present throughout S ensory Exam: normal sensation Other: A&O x4 Extrem: General: normal to inspection Psych: Mental Status: mental status grossly normal Affect: normal affect Other: Good insight and judgment, pleasant Results Labs 12/02/24 05:29 12/02/24 05:29 Labs: Short CBC 12/02/24 Range/Units 05:29 WBC 10.5 H (4.5-10.0) K/mm3 Hgb 13.2 L (14.0-18.0) g/dL Hct 38.4 L (42.0-52.0) % Plt Count 162 (150-375) k/mm3 [facility] 12/02/24 05:29 Sodium 136 L Potassium 3.9 Chloride 103 Carbon Dioxide 26 BUN 15 Creatinine 1.01 Glucose 116 H Calcium 8.4 Quality VTE Prophylaxis VTE prophylaxis: mechanical ordered and pharmacologic ordered
[2024-12-02 08:58] VITALS: BP 126/75
[2024-12-02] MEDS: LOSARTAN POTASSIUM 50 MG TABLET PO (09:00)
[2024-12-02] MEDS: CELECOXIB 200 MG CAPSULE PO (09:00)
[2024-12-02] MEDS: SENNA/DOCUSATE SODIUM TABLET 2 TAB PO (09:00)
[2024-12-02] MEDS: FAMOTIDINE 20 MG TABLET PO (09:00)
[2024-12-02] MEDS: APIXABAN 2.5 MG TABLET PO (09:00)
== END 2024-12-02 11:16 | disposition home or self-care (01) ==
LOC: ANHSURGERY 06:02 → ANH3MEDSUR 13:19
PROVIDERS: Physician Assistant Surgical; PCP Family Medicine; Visit Provider Orthopaedic Surgery
PROC: (CPT 27130; principal; 2024-12-01 07:30)
DX: M16.11 Unilateral primary osteoarthritis, right hip (principal); I10 Essential (primary) hypertension; E66.9 Obesity, unspecified; Z68.34 Body mass index [BMI] 34.0-34.9, adult
CPT/HCPCS: 27130; 36415; 73501; 80048; 85025; 86850; 86900; 86901; 97110; 97116; 97161; 97165; 97535; 99199; J0690; A9270; C1713; C1776; J0166; J1100; J1171; J1596; J1885; J2003; J2270; J2405; J2704; J2795; J3010; J3373; J7040; J7050; J7120

== ENCOUNTER 2024-12-04 12:53 | Emergency (ER) | payer MEDICARE, SELFPAY ==
--- NOTE | ~2024-12-04 | CT_ITS ---
EXAMINATION: CTA brain carotid DATE: 12/04/2024 17:02 INDICATION: vision changes TECHNIQUE: Computed tomographic angiography (CTA) of the head was performed without and with 100 mL O mnipaque-350 intravenous contrast. CTA of the neck was performed with intravenous contrast. Automated exposure control and iterative reconstruction technique were employed. The dose-length product was 2 163.69 mGy-cm. Maximum intensity projection and volume rendered 3D-reconstructions were created by beth hernandez technologist on a separate workstation. COMPARISON: None. FINDINGS: CT BRAIN: No acute large vessel infarct, intracranial hemorrhage, mass, or hydrocephalus. Decreased pneumatizat ion of the left mastoid air cells. Left mastoid fluid. The remaining aerated spaces are clear. CTA HEAD: No large vessel occlusion, aneurysm, high flow vascular malformation, nidus or extravasation. CTA NECK: Aortic arch and proximal great vessels: Normal arch anatomy. Right common carotid, carotid bifurcation, and internal carotid artery: Mild calcified and noncalcifi ed atherosclerotic plaque at the carotid bifurcation.There is 0% stenosis of the proximal right inter nal carotid artery relative to normal distal artery lumen diameter (NASCET criteria). Left common carotid, carotid bifurcation, and internal carotid artery: Mild calcified and noncalcifie d atherosclerotic plaque at the carotid bifurcation.There is 0% stenosis of the proximal left interna l carotid artery relative to normal distal artery lumen diameter (NASCET criteria). Vertebral arteries: No significant plaque or stenosis. Left vertebral artery is dominant. Other findings: Degenerative changes in the cervical spine. IMPRESSION: No acute intracranial process. No large vessel intracranial occlusion, high-grade intracranial stenosis, or aneurysm. No carotid or vertebral artery occlusion, dissection, or significant stenosis. Reviewed, dictated and finalized at location K. IMPRESSION: No acute intracranial process. No large vessel intracranial occlusion, high-grade intracranial stenosis, or an eurysm. No carotid or vertebral artery occlusion, dissection, or significant stenosis.
[2024-12-04 12:56] VITALS: BP 110/93; PULSE 72; RESP 18; TEMP 36.4; O2SAT 99
--- OUTSIDE RECORDS SUMMARY | 2024-12-04 12:58 | XMS_ITS | Clinical Summary ---
Author Organization [facility] Address [address] [place] [address] Care Team Providers Care Electronic Gluing Machine Operator Name Role Phone Unavailable Primary Care Provider [...]
--- OUTSIDE RECORDS SUMMARY | 2024-12-04 12:58 | XMS_ITS | Clinical Summary ---
Author Organization [facility] Address [address] [place] [address] Care Team Providers Care Maintenance Service Supervisor Name Role Phone Alexis Pereira MD Primary Care Provider [phone] Allergies No known active allergies Medications losartan [...] 03/26/2023, 04/27/2022, 02/24/2016, Additional history exists Insurance [facility] MEDICARE [facility] [employer] MEDICARE GOLD Care Teams Maintenance Service Supervisor Relationship Specialty Start Date End Date Alexis Pereira MD [address] [place] [id number] PCP - General Family Medicine 09/16/23
--- OUTSIDE RECORDS SUMMARY | 2024-12-04 12:58 | XMS_ITS | Referral Summary ---
Author Organization [facility] Address [address] [place] [address] Care Team Providers Care Freight Brakeman Name Role Phone Alexis Pereira MD Primary Care Provider [phone] Allergies No known active allergies Medications losartan [...] Plan of Treatment Not on file Insurance [facility] GOLD [facility] MEDIC[facility] Care Teams Freight Brakeman Relationship Specialty Start Date End Date Alexis Pereira MD [address] [place] [id number] PCP - General Family Medicine 09/16/23
--- OUTSIDE RECORDS SUMMARY | 2024-12-04 14:10 | XMS_ITS | Clinical Summary ---
Author Organization [facility] Address [address] [place] [address] Care Team Providers Care Manufacturing Supervisor Name Role Phone Alexis Pereira MD Primary Care Provider [phone] Allergies No known active allergies Medications losartan [...] 03/26/2023, 04/27/2022, 02/24/2016, Additional history exists Insurance [facility] MEDIC[facility] AET[employer] MEDICARE GOLD Care Teams Manufacturing Supervisor Relationship Specialty Start Date End Date Alexis Pereira MD [address] [place] [id number] PCP - General Family Medicine 09/16/23
--- OUTSIDE RECORDS SUMMARY | 2024-12-04 14:10 | XMS_ITS | Clinical Summary ---
Author Organization [facility] Address [address] [place] [address] Care Team Providers Care Dross Puller Name Role Phone Unavailable Primary Care Provider [...]
--- OUTSIDE RECORDS SUMMARY | 2024-12-04 14:10 | XMS_ITS | Referral Summary ---
Author Organization [facility] Address [address] [place] [address] Care Team Providers Care Server Service Assistant Name Role Phone Alexis Pereira MD Primary Care Provider [phone] Allergies No known active allergies Medications losartan [...] Plan of Treatment Not on file Insurance [facility] MEDICARE GOLD [facility] MEDICARE [facility] Care Teams Server Service Assistant Relationship Specialty Start Date End Date Alexis Pereira MD [address] [place] [phone] PCP - General Family Medicine 09/16/23
--- NOTE | 2024-12-04 14:21 | PC.NURSE ---
Pt. states he does not have any symptoms at this time. Pt. sitting in bed. at bedside.
[2024-12-04 15:03] LABS: Hematocrit 34.5 % (42.0-52.0); Hemoglobin 11.9 g/dL (14.0-18.0); Immature Granulocyte Percent A 0.3 % (0-0.5); Lymphocytes Absolute Auto 0.99 K/mm3 (0.9-3.2); Mean Corpuscular HGB Conc 34.5 g/dl (32-36); Mean Corpuscular Hemoglobin 32.4 pg (26-34); Mean Corpuscular Volume 94.0 fl (80-100); Nucleated Red Blood Cells Absolute Auto 0.000 K/mm3 (0.0-0.012); Nucleated Red Blood Cells Perc 0.0 % (0.0-0.2); Platelet Count Result 154 k/mm3 (150-375); Red Blood Count 3.67 M/mm3 (4.6-6.20); White Blood Count 7.3 K/mm3 (4.5-10.0)
[2024-12-04 15:17] VITALS: BP 130/76; PULSE 56; RESP 20; O2SAT 97
[2024-12-04 15:17] LABS: INR 1.2; Prothrombin Time 15.1 Seconds (11.1-14.7)
[2024-12-04 15:18] LABS: Partial Thromboplastin Time 35.0 Seconds (22.3-36.8)
[2024-12-04 15:20] LABS: Alanine Aminotransferase 16 U/L (6-50); Albumin Level 3.4 g/dL (3.5-5.1); Alkaline Phosphatase 46 U/L (38-126); Anion Gap 6 mmol/L (4-12); Aspartate Amino Transferase 39 U/L (17-59); Bilirubin,Total 1.0 mg/dL (0.2-1.3); Blood Urea Nitrogen 10 mg/dL (9-20); Calcium 8.1 mg/dL (8.4-10.2); Carbon Dioxide 26 mmol/L (22-30); Chloride 104 mmol/L (98-107); Estimated CRCL calculation 89 ml/min; Estimated Glomerular Filt Rate > 60; Glucose 102 mg/dL (65-110); Potassium 4.0 mmol/L (3.4-5.0); Sodium 136 mmol/L (137-145); Total Protein 6.1 g/dL (6.3-8.2)
--- NOTE | 2024-12-04 16:19 | ED.GENADULT ---
HPI - General Adult General Chief complaint: Unspecified Stated complaint: floaters, side effect of eliquis? Time Seen by Provider: 12/04/24 13:49 History of Present Illness HPI narrative: 74-year-old male presenting to the emergency department for evaluation for intermittent vision changes. Patient reports yesterday for approximately 1 minute he did have some per floaters that were colors. He describes these as being lights in his lateral patient for both eyes. Reports the symptoms lasted a brief period of time and resolved. He denied any blurred vision but states it was difficult for him to read through the colors. Patient denies any other neurologic symptoms with this. Patient denied having headache afterwards. At time of evaluation patient denies any current symptoms. Related Data Home Medications ?Medication ?Instructions ?Recorded ?Confirmed ?Last Taken ?Type magnesium 250 mg tablet 250 mg PO DAILY 09/25/24 11/09/24 Unknown History Allergies Allergy/AdvReac Type Severity Reaction Status Date / Time ibuprofen AdvReac HYPERACTIVI Verified 12/04/24 14:11 TY Review of Systems Review of Systems: All systems reviewed & are unremarkable except as noted in HPI and below PMFSH Past Medical History Medical History (Updated 12/04/24 @ 17:34 by Bladimir Barnard MD) GERD (gastroesophageal reflux disease) Essential (primary) hypertension Surgical History Surgical History (Updated 12/02/24 @ 08:32 by MARIELOS Moore) History of tonsillectomy History of trigger finger History of carpal tunnel surgery bilateral Social History Social History Smoking status: Never smoker Alcohol intake: never Drinks per week: 5 Substance use: never Substance use type: does not use Do You Feel Safe in your Home?: Yes Lack of Transportation: No Lack of Food: Never True Current Housing: I Have Housing Concerned About Future Housing: No Difficulty Paying Gas/Electric Bills: No Difficulty Paying for Meds: No Currently Unemployed: No Education: Decline to Answer Difficulty w/ Childcare or Family Care: No Living arrangements: with family Additional living arrangements comments: Occupation/Education: retired Gender identity (if verbalized by the patient): Male Sexual Orientation (if Verbalized by the Patient): Straight or Heterosexual Spiritual care concerns: No Exam Narrative: APPEARANCE: Well appearing, no pain, no distress, well-nourished. HEAD: normocephalic, atraumatic. EYES: PERRLA/EOMI, conjunctivae clear. NOSE: Normal no drainage EARS:TMS clear with good light reflex. THROAT: Pharynx clear, no exudate. NECK: Supple. No adenopathy, no masses. RESPIRATORY: Airway patent, respirations nonlabored. Clear to auscultation bilaterally, no rales, rhonchi, wheezing. CARDIOVASCULAR: Regular rate and rhythm without murmurs rubs or gallops. ABDOMINAL: Soft, nontender, nondistended, normal bowel sounds MUSCULOSKELETAL: Moves all extremities. Strength/ROM intact, No edema, No calf tenderness. NEURO: Alert. Cranial nerves II through XII intact. Grossly intact SKIN: Warm, dry. Normal Color Course Vital Signs Vital signs: Vital Signs Temperature 97.6 F 12/04/24 12:56 Pulse Rate 72 12/04/24 12:56 Respiratory Rate 18 12/04/24 12:56 Blood Pressure 110/93 H 12/04/24 12:56 Pulse Oximetry 99 12/04/24 12:56 Oxygen Delivery Room Air 12/04/24 12:56 Temperature 97.6 F 12/04/24 12:56 Pulse Rate 56 L 12/04/24 15:17 Respiratory Rate 20 12/04/24 15:17 Blood Pressure 130/76 12/04/24 15:17 Pulse Oximetry 97 12/04/24 15:17 Oxygen Delivery Room Air 12/04/24 12:56 Medical Decision Making [facility] Narrative Medical decision making narrative: 74-year-old male presents to the emergency department for evaluation for intermittent vision changes. Patient has no current vision changes at time of evaluation. Patient is currently afebrile code dose hemoglobin 11.9. Patient's INR is 1.2. Patient has no acute abnormalities on his CMP CTA shows no acute large vessel occlusion. Patient has no current been changes and normal fundus exam at time of evaluation. Patient was encouraged to have close follow-up with Ophthalmology. Differential Diagnosis Differential Diagnosis: CVA, retinal detachment, retinal hemorrhage Vital Signs Vital Signs: Vital Signs Temperature 97.6 F 12/04/24 12:56 Pulse Rate 72 12/04/24 12:56 Respiratory Rate 18 12/04/24 12:56 Blood Pressure 110/93 H 12/04/24 12:56 Pulse Oximetry 99 12/04/24 12:56 Oxygen Delivery Room Air 12/04/24 12:56 Temperature 97.6 F 12/04/24 12:56 Pulse Rate 56 L 12/04/24 15:17 Respiratory Rate 20 12/04/24 15:17 Blood Pressure 130/76 12/04/24 15:17 Pulse Oximetry 97 12/04/24 15:17 Oxygen Delivery Room Air 12/04/24 12:56 Lab Data Lab results reviewed: Yes I reviewed the patient's lab results. 12/04/24 14:55 12/04/24 14:55 Labs: Lab Results 12/04/24 12/04/24 Range/Units 14:54 14:55 WBC 7.3 (4.5-10.0) K/mm3 RBC 3.67 L (4.6-6.20) M/mm3 Hgb 11.9 L (14.0-18.0) g/dL Hct 34.5 L (42.0-52.0) % MCV 94.0 (80-100) fl MCH 32.4 (26-34) pg MCHC 34.5 (32-36) g/dl RDW 12.1 (11.5-14.5) % Plt Count 154 (150-375) k/mm3 MPV 10.1 (7.4-10.4) fl Immature Gran % (Auto) 0.3 (0-0.5) % Neut % (Auto) 76.7 H (45.5-73.1) % Lymph % (Auto) 13.6 L (18.3-44.2) % [place] % (Auto) 8.7 H (2.6-8.5) % Eos % (Auto) 0.6 (0-4.4) % Baso % (Auto) 0.1 L (0.2-1.2) % Lymph # (Auto) 0.99 (0.9-3.2) K/mm3 [place] # (Auto) 0.6 (0.1-0.6) K/mm3 Eos # (Auto) 0.0 (0-0.3) K/mm3 Baso # (Auto) 0.0 (0.0-0.1) K/mm3 Abs Immat Gran (auto) 0.02 (0.00-0.031) K/mm3 Absolute Neuts (auto) 5.6 (1.3-6.7) K/mm3 Absolute Nucleated RBC 0.000 (0.0-0.012) K/mm3 Nucleated RBC % 0.0 (0.0-0.2) % PT 15.1 H (11.1-14.7) Seconds INR 1.2 APTT 35.0 (22.3-36.8) Seconds Sodium 136 L (137-145) mmol/L Potassium 4.0 (3.4-5.0) mmol/L Chloride 104 (98-107) mmol/L Carbon Dioxide 26 (22-30) mmol/L Anion Gap 6 (4-12) mmol/L BUN 10 D (9-20) mg/dL Creatinine 0.76 (0.7-1.3) mg/dL Estim Creat Clear Calc 89 ml/min Estimated GFR > 60 (59 - ) Glucose 102 (65-110) mg/dL Calcium 8.1 L (8.4-10.2) mg/dL Total Bilirubin 1.0 (0.2-1.3) mg/dL AST 39 (17-59) U/L ALT 16 (6-50) U/L Alkaline Phosphatase 46 (38-126) U/L Total Protein 6.1 L (6.3-8.2) g/dL Albumin 3.4 L (3.5-5.1) g/dL Imaging Data Radiologist's impression: Impressions Head/Neck CTA 12/04/24 17:13 IMPRESSION: No acute intracranial process. No large vessel intracranial occlusion, high-grade intracranial stenosis, or aneurysm. No carotid or vertebral artery occlusion, dissection, or significant stenosis. Discharge Plan Discharge Clinical Impression: Vision changes Patient Disposition: Home Condition: Stable Instructions: Antibiotic Form Additional Instructions: Have close follow-up with Ophthalmology. If you have any worsening symptoms then please call or return to the emergency department. Patient Language: Gabonese Prescriptions: No Action magnesium 250 mg tablet 250 mg PO DAILY celecoxib [Celebrex] 200 mg Capsule 200 mg PO DAILY Qty: 10 0RF acetaminophen 325 mg Tablet 650 mg PO Q4H Qty: 90 0RF polyethylene glycol 3350 [Miralax] 17 gram Powder In Packet 17 g PO QAM Qty: 30 0RF sennosides-docusate sodium [Senokot-S] 8.6-50 mg Tablet 2 tab PO BID Qty: 60 0RF cephalexin 500 mg Capsule 500 mg PO Q6H Qty: 56 0RF oxycodone 5 mg Tablet 5 mg PO Q4H PRN (Reason: Pain ) Qty: 30 0RF Eliquis 2.5 mg Tablet 2.5 mg PO Q12HR Qty: 70 0RF losartan 50 mg tablet 50 mg PO DAILY Qty: 90 1RF Patient Comments: QAM Follow-up/Referrals: [facility] [Outside] Alexys Tapia [Outside] Alexis Pereira MD [Primary Care Provider] - Quality Stroke Scale Stroke Scale 1: 1a Level of consciousness: alert-0 1b Level of consciousness questions: answers both correctly-0 1c Level of consciousness commands: obeys both correctly-0 2 Best gaze: normal-0 3 Visual: no visual loss-0 4 Facial palsy: normal-0 5a Motor: left arm: no drift-0 5b Motor: right arm: no drift-0 6a Motor: left leg: no drift-0 6b Motor: right leg: no drift-0 7 Limb ataxia: absent-0 8 Sensory: normal-0 9 Best language: no aphasia-0 10 Dysarthria: normal-0 11 Extinction and inattention: no abnormality-0 Level:: 0
== END 2024-12-04 18:00 | disposition home or self-care (01) ==
PROVIDERS: Emergency Provider Emergency Medicine; PCP Family Medicine
DX: H53.8 Other visual disturbances (principal); I10 Essential (primary) hypertension; K21.9 Gastro-esophageal reflux disease without esophagitis; Z79.01 Long term (current) use of anticoagulants; Z79.899 Other long term (current) drug therapy
CPT/HCPCS: 36415; 70496; 70498; 80053; 85025; 85610; 85730; 99284; Q9967